=== PATIENT | female | born 1970 | race Caucasian/White ===

== ENCOUNTER 2016-11-11 10:36 | Emergency (ER) | payer OTHER ==
[2016-11-11 10:40] VITALS: BP 129/80; PULSE 84; RESP 20; TEMP 97.9; O2SAT 100
--- NOTE | 2016-11-11 10:59 | C.PDOC ---
History Of Present Illness 45 y/o female patient presents to the ED for evalution of right index finger which began yesterday. Patient states she was cleaning and attempted to wipe down the floor when she felt as if she had gotten pricked by something. Patient is unsure whether a splinter has entered her finger; she has tried removing the object with no avail. Patient notes 4/5 pain and with swelling to the area and difficulty flexing her finger. Patient denies fever, chills, direct trauma/ injury to the affected area. Time Seen by Provider: 11/11/16 10:42 Chief Complaint (Nursing): Finger,Hand,&Wrist History Per: Patient History/Exam Limitations: no limitations Onset/Duration Of Symptoms: Hrs Current Symptoms Are (Timing): Still Present Quality: "Pain" Additional History Per: Patient Past Medical History Reviewed: Historical Data, Nursing Documentation, Vital Signs Vital Signs: Last Vital Signs Temp 97.9 F 11/11/16 10:38 Pulse 84 11/11/16 10:38 Resp 20 11/11/16 10:38 BP 129/80 11/11/16 10:38 Pulse Ox 100 11/11/16 11:01 - Medical History PMH: No Chronic Diseases Surgical History: No Surg Hx Family History: States: Unknown Family Hx - Social History Hx Alcohol Use: No Hx Substance Use: No - Immunization History Hx Tetanus Toxoid Vaccination: Yes Hx Influenza Vaccination: No Hx Pneumococcal Vaccination: No Review Of Systems Constitutional: Negative for: Fever, Chills Musculoskeletal: Positive for: Other (+right index finger pain and swelling ) Physical Exam - Physical Exam Appears: Non-toxic, No Acute Distress Skin: Normal Color, Warm, Dry, Other (right 2nd digit: no warmth or erythema. no visible insertion site. no visible or palpation foreign body) Head: Atraumatic Eye(s): bilateral: Normal Inspection Oral Mucosa: Moist Neck: Supple Extremity: Normal ROM, No Tenderness, Capillary Refill (less than 2 seconds ), No Deformity, Swelling (mild to right 2nd digit ) Pulses: Right Radial: Normal Neurological/Psych: Normal Speech, Normal Cognition Gait: Steady ED Course And Treatment O2 Sat by Pulse Oximetry: 100 (on RA) Pulse Ox Interpretation: Normal Medical Decision Making Medical Decision Making: Impression: 45y/o female with R 2nd digit pain and swelling Progress: No evidence of insertion site or visible/palpable foreign body during physical examination. On reassessment, patient is resting comfortably and is showing no signs of distress. Patient will be provided with Rx for antibiotics in case of a possible infection to the affected area. Patient is stable for discharge and is advised to follow up with her PMD within 1-2 days for further evaluation and/or return to the ED if symptoms worsen. Disposition Counseled Patient/Family Regarding: Diagnosis, Need For Followup, Rx Given - Disposition Referrals: [facility] [Outside] Disposition: HOME/ ROUTINE Disposition Time: 10:57 Condition: STABLE Additional Instructions: Take antibiotics. Soak your finger in warm water 3 times a day. Follow up with your doctor or our clinic. Prescriptions: Cephalexin [Keflex] 500 mg PO TID #40 capsule Forms: General Discharge Instructions - POA Present On Arrival: None - Clinical Impression Clinical Impression: Pain of finger of right hand - Scribe Statement The provider has reviewed the documentation as recorded by the Scribe (Kayla Oconnor) Provider Attestation: All medical record entries made by the Scribe were at my direction and personally dictated by me. I have reviewed the chart and agree that the record accurately reflects my personal performance of the history, physical exam, medical decision making, and the department course for this patient. I have also personally directed, reviewed, and agree with the discharge instructions and disposition.
== END 2016-11-11 11:05 | disposition home or self-care (01) ==
LOC: C.ER 10:36
DX: M79.644 Pain in right finger(s) (principal)

== ENCOUNTER 2017-01-09 07:14 | Emergency (ER) | payer OTHER ==
[2017-01-09 07:29] VITALS: RESP 20
--- NOTE | 2017-01-09 08:28 | RAD ---
PROCEDURE: HISTORY: r/o fx COMPARISON: None TECHNIQUE: AP view of the pelvis and applicable frog leg views obtained. FINDINGS: Normal bone mineralization. Trace sclerotic SI joint borders- bilateral. Unremarkable pubic symphysis. Probable trace bilateral superolateral hip joint space narrowing. Bilateral sub cm superolateral acetabular roof lucencies -sub cortical cystic changes mild right slightly larger than left at 8 mm. L4-5 disc space narrowing with vacuum disc phenomenon -bilateral L5-S1 probable facet hypertrophy and minimal endplate spondylosis suspect. IMPRESSION: No fracture or dislocation. Bilateral superolateral minimal hip joint space narrowing with small sub cm acetabular roof subchondral subcortical cysts(small geodes). Inferior lumbar degenerative changes.
[2017-01-09 09:00] VITALS: BP 120/79; PULSE 77; TEMP 97.6; O2SAT 99
--- NOTE | 2017-01-09 09:20 | C.PDOC ---
History Of Present Illness 46 y/o female presents to ED for evaluation of right hip pain since yesterday. Pt states that pain is worse with ambulation and movement. Notes having similar symptoms in the past. Denies taking any OTC pain medications. Otherwise, denies any trauma, injury, abdominal pain, nausea, vomiting, dysuria, hematuria, change in sensation, or fever. Time Seen by Provider: 01/09/17 07:38 Chief Complaint (Nursing): Back Pain History Per: Patient History/Exam Limitations: no limitations Onset/Duration Of Symptoms: Days (1) Current Symptoms Are (Timing): Still Present Quality Of Discomfort: "Pain" Severity: Moderate Previous Symptoms: denies: Prior Injury Associated Symptoms: None. denies: Incontinence, New Weakness, New Numbness Exacerbating Factor(s): Movement Recent travel outside of the [place]: No Additional History Per: Patient Past Medical History Reviewed: Historical Data, Nursing Documentation, Vital Signs Vital Signs: Last Vital Signs Temp 97.6 F 01/09/17 08:50 Pulse 77 01/09/17 08:50 Resp 20 01/09/17 08:50 BP 120/79 01/09/17 08:50 Pulse Ox 99 01/09/17 09:29 - Medical History PMH: No Chronic Diseases Family History: States: Unknown Family Hx - Social History Hx Alcohol Use: No Hx Substance Use: No - Immunization History Hx Tetanus Toxoid Vaccination: Yes Hx Influenza Vaccination: No Hx Pneumococcal Vaccination: No Review Of Systems Except As Marked, All Systems Reviewed And Found Negative. Constitutional: Negative for: Fever, Chills Gastrointestinal: Negative for: Nausea, Vomiting, Abdominal Pain Genitourinary: Negative for: Dysuria, Frequency, Hematuria Musculoskeletal: Positive for: Other (right hip pain). Negative for: Back Pain , Leg Pain Skin: Negative for: Rash, Bruising Neurological: Negative for: Weakness, Numbness Physical Exam - Physical Exam Appears: Non-toxic, No Acute Distress Skin: Normal Color, Warm, Dry, No Rash Head: Atraumatic, Normacephalic Cardiovascular: Rhythm Regular, No Murmur Respiratory: Normal Breath Sounds, No Rales, No Rhonchi, No Wheezing Back: Normal Inspection, No CVA Tenderness, No Vertebral Tenderness, No Paraspinal Tenderness Extremity: Normal ROM, Tenderness (point tenderness to lateral aspect of right hip), Capillary Refill (<2 sec.), No Deformity, No Swelling Extremity: Bilateral: Atraumatic, Normal Color And Temperature, Normal ROM, Pelvis-Stable Neurological/Psych: Oriented x3, Normal Speech ED Course And Treatment O2 Sat by Pulse Oximetry: 99 (on RA) Pulse Ox Interpretation: Normal - Other Rad Right hip x-ray X-Ray: Viewed By Me, Read By Radiologist Interpretation: FINDINGS: Normal bone mineralization. Trace sclerotic SI joint borders- bilateral. Unremarkable pubic symphysis. Probable trace bilateral superolateral hip joint space narrowing. Bilateral sub cm superolateral acetabular roof lucencies -sub cortical cystic changes mild right slightly larger than left at 8 mm. L4-5 disc space narrowing with vacuum disc phenomenon -bilateral L5-S1 probable facet hypertrophy and minimal endplate spondylosis suspect. IMPRESSION: No fracture or dislocation. Bilateral superolateral minimal hip joint space narrowing with small sub cm acetabular roof subchondral subcortical cysts(small geodes). Inferior lumbar degenerative changes. Medical Decision Making Medical Decision Making: Right hip x-ray ordered and reviewed. Patient was given Motrin for pain. On re-evaluation, patient reports feeling better, with improvement of pain. Pt feels comfortable being discharged home. Disposition - Disposition Referrals: [facility], [Non-Staff] - Disposition: HOME/ ROUTINE Disposition Time: 08:30 Condition: GOOD Additional Instructions: Thank you for letting us take care of you today. Your provider was Dr. Bobby. You were treated for hip pain. The emergency medical care you received today was directed at your acute symptoms. If you were prescribed any medication, please fill it and take as directed. It may take several days for your symptoms to resolve. Return to the Emergency Department if your symptoms worsen, do not improve, or if you have any other problems. Please contact your doctor or call one of the physicians/clinics you have been referred to that are listed on the Patient Visit Information form that is included in your discharge packet. Bring any paperwork you were given at discharge with you along with any medications you are taking to your follow up visit. Our treatment cannot replace ongoing medical care by a primary care provider (PCP) outside of the emergency department. Thank you for allowing the [facility] team to be part of your care today. Follow up with your primary doctor in 2-3 days for re-evaluation and further management. Prescriptions: Ibuprofen [Motrin] 600 mg PO Q6 PRN #20 tab PRN Reason: Pain, Moderate (4-7) Instructions: Hip Pain (ED) Forms: School Excuse, Work Excuse - Clinical Impression Clinical Impression: Hip pain - Scribe Statement The provider has reviewed the documentation as recorded by the Scribe Velia Oconnor All medical record entries made by the Nidhiibe were at my direction and personally dictated by me. I have reviewed the chart and agree that the record accurately reflects my personal performance of the history, physical exam, medical decision making, and the department course for this patient. I have also personally directed, reviewed, and agree with the discharge instructions and disposition.
== END 2017-01-09 09:00 | disposition home or self-care (01) ==
LOC: C.ER 07:14
DX: M25.551 Pain in right hip (principal)

== ENCOUNTER 2017-01-20 09:46 | Emergency (ER) | payer SELFPAY ==
[2017-01-20 10:03] VITALS: BP 133/67; PULSE 83; RESP 16; TEMP 98.1; O2SAT 100
[2017-01-20] MEDS ORDERED: DiphenhydrAMINE 50 mg/ml Inj IM STA (10:11)
[2017-01-20] MEDS ORDERED: DiphenhydrAMINE 50 mg/ml Inj ONE (10:16)
--- NOTE | 2017-01-20 10:17 | C.PDOC ---
History Of Present Illness 01/20/2017 Patient is a 46 year old female, who presents to the emergency department complaining of a possible allergic reaction that has caused a rash throughout her upper and lower extremities for the past three days. Patient reports she has had these symptoms before when drinking or eating dairy. Patient admits to drinking milk again and stopped immediately after she noted the rash. She describes the symptoms as a red and itchy sensation and notes that several spots have turned black. She denies any new creams, perfumes, or laundry detergent. Patient has also taken anti-histamine (Claritin) but not much help. Patient denies any fevers, headache, chest pain, nausea, vomiting, or other complaints. PMD: Dr. Nowak Time Seen by Provider: 01/20/17 10:05 Chief Complaint (Nursing): Allergic Reaction History Per: Patient History/Exam Limitations: no limitations Onset/Duration Of Symptoms: Days (3 days) Current Symptoms Are (Timing): Still Present Possible Cause: Other (dairy product) Associated Symptoms: Skin Rash, Itching, Redness Home/EMS Treatment: Other (Claritin) Past Medical History Reviewed: Historical Data, Nursing Documentation, Vital Signs Vital Signs: Last Vital Signs Temp 98.1 F 01/20/17 10:00 Pulse 83 01/20/17 10:00 Resp 16 01/20/17 10:00 BP 133/67 01/20/17 10:00 Pulse Ox 100 01/20/17 10:41 - Medical History PMH: No Chronic Diseases Family History: States: Hypertension, Other Other Family History: cancer - Social History Hx Tobacco Use: No Hx Alcohol Use: No Hx Substance Use: No - Immunization History Hx Tetanus Toxoid Vaccination: Yes Hx Influenza Vaccination: No Hx Pneumococcal Vaccination: No Review Of Systems Constitutional: Negative for: Fever Cardiovascular: Negative for: Chest Pain Respiratory: Negative for: Cough, Shortness of Breath Gastrointestinal: Negative for: Nausea, Vomiting Skin: Positive for: Rash (red and itchy on upper and lower extremities) Neurological: Negative for: Dizziness Physical Exam - Physical Exam Appears: Well, Non-toxic, No Acute Distress Skin: Warm, Dry, Rash (erythematous maculopapular rash noted on leg and arms. Also some noted wheals) Head: Atraumatic, Normacephalic Eye(s): bilateral: Normal Inspection, PERRL, EOMI Nose: Normal Throat: Normal Neck: Normal Cardiovascular: Rhythm Regular Respiratory: Normal Breath Sounds, No Rales, No Wheezing Gastrointestinal/Abdominal: Normal Exam Back: Normal Inspection Extremity: Normal ROM Neurological/Psych: Oriented x3, Normal Speech, Normal Cognition, Normal Motor, Normal Sensation Gait: Steady ED Course And Treatment O2 Sat by Pulse Oximetry: 100 (room air) Pulse Ox Interpretation: Normal Medical Decision Making Medical Decision Making: Initial Impression: Allergic reaction Differential Diagnosis included but are not limited to: allergic reaction, possible to dairy product Initial Plan: -- Benadryl -- Prednisone -- Reassess and disposition Re-evaluation: Discussed results and plan with patient. Patient understands results and is agreeable with plan. All questions answered. Disposition - Disposition Referrals: Priya Nowak MD [Staff Provider] - Disposition: HOME/ ROUTINE Disposition Time: 10:14 Condition: GOOD Additional Instructions: Ms. Haro, thank you for letting us take care of you today. Return to the ER if your symptoms worsen, or if any problems. Take the medication listed below as prescribed. Try avoiding milk, as your allergic reaction may be due to milk. Follow up with Dr. Nowak next week for re-evaluation. Prescriptions: DiphenhydrAMINE [Benadryl] 1 tab PO Q6 PRN #30 cap PRN Reason: Allergy Symptoms predniSONE [Prednisone] 1 tab PO TID #12 tab Instructions: Urticaria (ED), Food Allergy (ED), General Allergic Reaction (ED) Forms: General Discharge Instructions Print Language: BELARUSIAN - POA Present On Arrival: None - Clinical Impression Clinical Impression: Allergic urticaria, Milk allergy, Allergic reaction to milk protein - Scribe Statement The provider has reviewed the documentation as recorded by the Scribe 01/20/2017 Scribe Attestation: Manasa Harkins MD Scribe Attestation: All medical record entries made by the Scribe were at my direction and personally dictated by me. I have reviewed the chart and agree that the record accurately reflects my personal performance of the history, physical exam, medical decision making, and the department course for this patient. I have also personally directed, reviewed, and agree with the discharge instructions and disposition.
== END 2017-01-20 10:22 | disposition home or self-care (01) ==
LOC: C.ER 09:46
DX: L50.0 Allergic urticaria (principal); Z91.011 Allergy to milk products
CPT/HCPCS: 96372; 99283; J1200

== ENCOUNTER 2018-01-26 14:17 | Emergency (ER) | payer OTHER ==
[2018-01-26 14:32] VITALS: TEMP 98.1
[2018-01-26] MEDS ORDERED: Sodium Chloride 0.9% 1,000 ML IV ONE (15:02)
--- NOTE | 2018-01-26 15:23 | RAD ---
Date of service: 01/26/2018 HISTORY: SOB COMPARISON: No prior. TECHNIQUE: Chest PA and lateral FINDINGS: LUNGS: No active pulmonary disease. PLEURA: Mild elevation of the right hemidiaphragm. No significant pleural effusion identified. No pneumothorax apparent. CARDIOVASCULAR: Normal. OSSEOUS STRUCTURES: No significant abnormalities. VISUALIZED UPPER ABDOMEN: Normal. OTHER FINDINGS: None. IMPRESSION: No active disease.
[2018-01-26 15:25] LABS: BASO # 0.1 K/uL (0.0-0.2); BASO % 0.9 % (0.0-2.0); EOS # 0.1 K/uL (0.0-0.7); EOS % 0.7 % (0.0-4.0); HEMOGLOBIN 11.1 g/dL (11.0-16.0); LYMPH # 3.1 K/uL (1.0-4.3); LYMPH % 25.7 % (20.0-40.0); MEAN CELL VOLUME 89.2 fL (81.0-99.0); MEAN CORPUSCULAR HEMOGLOBIN 29.5 pg (27.0-31.0); MEAN CORPUSCULAR HGB CONC 33.1 g/dL (33.0-37.0); MEAN PLATELET VOLUME 10.7 fL (7.2-11.7); MONO # 0.9 K/uL (0.0-0.8); MONO % 7.6 % (0.0-10.0); NEUT # 7.8 K/uL (1.8-7.0); NEUT % 65.1 % (50.0-75.0); NRBC % 0.1 % (0.0-2.0); RBC 3.75 Mil/uL (3.80-5.20); RED CELL DISTRIBUTION WIDTH 13.8 % (11.5-14.5); WHITE BLOOD COUNT 11.9 K/uL (4.8-10.8)
[2018-01-26 15:33] LABS: HCG,QUALITATIVE URINE NEGATIVE (NEGATIVE)
[2018-01-26 15:37] LABS: SQUAMOUS EPITHIAL 9 /hpf (0-5); URINE BILIRUBIN NEGATIVE (NEGATIVE); URINE BLOOD 1+ (NEGATIVE); URINE CLARITY Hazy (Clear); URINE COLOR Red (YELLOW); URINE GLUCOSE (UA) NORMAL (Normal); URINE LEUKOCYTE ESTERASE 3+ Leu/uL (Negative); URINE PROTEIN NEGATIVE (NEGATIVE); URINE UROBILINOGEN NORMAL mg/dL (0.2-1.0)
[2018-01-26 15:39] LABS: ALB/GLOB RATIO 1.5 (1.0-2.1); ALBUMIN 4.1 g/dL (3.5-5.0); AST/SGOT 26 U/L (14-36); BLOOD UREA NITROGEN 9 mg/dL (7-17); CALCIUM 9.3 mg/dl (8.6-10.4); GFR NON-AFRICAN AMERICAN > 60
[2018-01-26 15:40] LABS: ALT/SGPT 44 U/L (9-52)
[2018-01-26 15:48] LABS: INR 1.2; PARTIAL THROMBOPLASTIN TIME 31 SECONDS (21-34); PROTHROMBIN TIME 12.6 SECONDS (9.7-12.2)
[2018-01-26 15:53] LABS: D DIMER < 200 ng/mlDDU (0-243)
--- NOTE | 2018-01-26 16:03 | C.PDOC ---
History Of Present Illness 47 yo female w/o significant PMHx come in for evaluation of SOB intermittent for past 1 moth. Pt sts, episodes of dyspnea are intermittent, unable to recall any exacerbating factors. Pt admits, " I just lost my sister, she from lung cancer and I want to make sure, Im fine". Pt denies fever, chills, recent illness, headache, dizziness, neck pain, CP, palpitation, diaphoresis, abd. pain , N/V/D, back pain, UTI sx, no risk factors for DVT, PE. At present time, pt appears slightly anxious, not in any apparent distress. Time Seen by Provider: 01/26/18 14:43 Chief Complaint (Nursing): Shortness Of Breath History Per: Patient Past Medical History Reviewed: Historical Data, Nursing Documentation, Vital Signs Vital Signs: Last Vital Signs Temp 98.1 F 01/26/18 14:29 Pulse 88 01/26/18 14:29 Resp 18 01/26/18 14:29 BP 159/97 H 01/26/18 14:29 Pulse Ox 95 01/26/18 14:29 - Medical History PMH: No Chronic Diseases Surgical History: No Surg Hx Family History: States: Unknown Family Hx, Hypertension - Social History Hx Tobacco Use: No Hx Alcohol Use: No Hx Substance Use: No - Immunization History Hx Tetanus Toxoid Vaccination: Yes Hx Influenza Vaccination: No Hx Pneumococcal Vaccination: No Review Of Systems Except As Marked, All Systems Reviewed And Found Negative. Constitutional: Negative for: Fever, Chills, Sweats Eyes: Negative for: Vision Change ENT: Negative for: Throat Pain Cardiovascular: Negative for: Chest Pain, Palpitations, Edema, Light Headedness Respiratory: Positive for: Shortness of Breath. Negative for: Cough, Pleuritic Pain, Sputum, Wheezing Gastrointestinal: Negative for: Nausea, Vomiting, Abdominal Pain, Diarrhea Genitourinary: Negative for: Dysuria Musculoskeletal: Negative for: Neck Pain, Back Pain Skin: Negative for: Rash Neurological: Negative for: Weakness, Numbness, Altered Mental Status, Headache , Dizziness Physical Exam - Physical Exam Appears: Well, Non-toxic, No Acute Distress Skin: Normal Color, Warm, Dry, No Rash Head: Normacephalic Eye(s): bilateral: PERRL Nose: No Flaring, No Discharge Oral Mucosa: Moist, No Drooling Tongue: Normal Appearing Lips: Normal Appearing Throat: No Erythema, No Drooling Neck: No Midline Cervical Tenderness, No Paracervical Tenderness, No Step Off Deformity, Supple Cardiovascular: Rhythm Regular, No Murmur, No JVD, Other ((-) carotod bruits B/L ) Respiratory: No Decreased Breath Sounds, No Accessory Muscle Use, No Stridor, No Wheezing Gastrointestinal/Abdominal: Soft, No Tenderness, No Distention, No Guarding Back: No CVA Tenderness Extremity: Normal ROM, No Deformity, No Swelling Neurological/Psych: Oriented x3, Normal Speech, Normal Motor, Normal Sensation, Normal Reflexes ED Course And Treatment - Laboratory Results Result Diagrams: 01/26/18 15:21 01/26/18 15:21 Lab Interpretation: No Acute Changes Urine POC: Negative ECG: Interpreted By Me, Viewed By Me ECG Rhythm: Sinus Rhythm Interpretation Of ECG: SR@61/min, NAD, T wave inversion in III, no acute ST-T changes O2 Sat by Pulse Oximetry: 95 Pulse Ox Interpretation: Normal - Radiology CXR: Interpreted by Me, Viewed By Me, Read By Radiologist CXR Interpretation: Yes: No Acute Disease Progress Note: On re-eval, pt is afebrile,hemodynamicaly stable. NOn-toxic. PulseOx 95% RA. Neck: Supple, (-) JVD, (-) carotid bruits B/L. Lungs: CTA B/L , Bs equal B/L. CVS: (+)S1S2, reg. Abd: benign, (-) guarding, (-) rebound. Back: (-) CVA tenderness. Blood owrk review, mild leukocytosis. UA (+) WBC, RBC c/w UTI. Pt received Rocephin empirically, UCx- pending. Troponin, D-Dimer - negative. CXR, EKG- normal study. Pt has clinical findings c/w dyspnea, UTI. Pt advised. ref. to f/u with PMD in 2-3 dyas for re-eval. return to ED if any worsening or new changes. Disposition Counseled Patient/Family Regarding: Studies Performed, Diagnosis, Need For Followup, Rx Given - Disposition Referrals: Priya Nowak MD [Staff Provider] - Disposition: HOME/ ROUTINE Disposition Time: 16:09 Condition: STABLE Additional Instructions: Encourage fluids Take medication as prescribed Follow up with PMD in 2-3 days for re-evaluation. return to ED if any worsening or new changes. Prescriptions: Cefdinir [Omnicef] 300 mg PO BID #14 cap Instructions: Shortness of Breath (Dyspnea), Urinary Tract Infections in Adults - Clinical Impression Clinical Impression: Dyspnea, UTI (urinary tract infection)
[2018-01-26 16:45] VITALS: BP 138/84; PULSE 82; RESP 16; O2SAT 98
--- NOTE | 2018-01-28 12:38 | CARD ---
APPROVED REPORT Date of service: 01/26/2018 EKG Measurement Heart [id number] <Conclusion> Normal sinus rhythm Possible Left atrial enlargement Left ventricular hypertrophy Cannot rule out Septal infarct, age undetermined Abnormal ECG
== END 2018-01-26 17:03 | disposition home or self-care (01) ==
LOC: C.ER 14:17
DX: N39.0 Urinary tract infection, site not specified (principal); R06.00 Dyspnea, unspecified
CPT/HCPCS: 71046; 80053; 81001; 83880; 84484; 84703; 85025; 85378; 85610; 85730; 87086; 93005; 96361; 96365; 99283; J0696; J7030